=== PATIENT | male | born 1980 | race African-American/Black ===

== ENCOUNTER 2016-11-22 05:02 | Emergency (ER) | payer SELFPAY ==
[~2016-11-22] VITALS: Ht 175.3 cm; Wt 69.0 kg
[~2016-11-22 05:02] MED LIST: ADVI200C9
[2016-11-22 05:06] VITALS: BP 155/95; PULSE 118; RESP 15; TEMP 97.4; O2SAT 100
--- NOTE | 2016-11-22 05:42 | PD ---
HPI Chief Complaint: Oral / Dental Pain or Problem Travel History International Travel<30 days: No Contact w/Intl Traveler<30days: No Traveled to known affect area: No PFSH Past Medical History Cardiovascular Problems: Yes (CARDIAC DYSRHYTHMIA SINCE CHILDHOOD.) Social History Alcohol Use: Yes (OCCASIONAL SIP OF BEER, HAD A "FEW SIPS" TONIGHT.) Tobacco Use: Yes (2 PPD, SMOKED "A LOT" TONIGHT.) Allergies-Medications (Allergen,Severity, Reaction): Coded Allergies: Penicillin (Verified Allergy, Mild, UNKNOWN, REACTION A CHILD, 11/22/16) Reported Meds & Prescriptions Reported Meds & Active Scripts Active Reported Advil (Ibuprofen) 200 Mg Cap Review of Systems Except as stated in HPI: all other systems reviewed are Neg Data Data Last Documented VS Vital Signs Date Time Temp Pulse Resp B/P Pulse Ox O2 Delivery O2 Flow Rate FiO2 11/22/16 05:58 89 14 123/71 98 Room Air 11/22/16 05:06 97.4 Luis Lawler Nov 22, 2016 05:42 11/22/16 05:58 89 14 123/71 98 Room Air 11/22/16 05:06 97.4 Luis Lawler Nov 22, 2016 05:42
[2016-11-22 05:58] VITALS: BP 123/71; PULSE 89; RESP 14; O2SAT 98
--- NOTE | 2016-11-22 06:11 | PD ---
HPI Chief Complaint: Oral / Dental Pain or Problem Time Seen by Provider: 05:33 Travel History International Travel<30 days: No Contact w/Intl Traveler<30days: No Traveled to known affect area: No History of Present Illness HPI Patient is in for evaluation of dental abscess ongoing for several days. Patient states he was seen at different ER yesterday prescribed antibiotics and he is still having pain in the right side of his face radiates to his right ear. Pain is worse with eating. Patient denies any fevers, nausea, vomiting, diarrhea. Patient states that he was prescribed clindamycin but has not picked up the prescription yet and was not prescribed any pain medication. Patient is just wanting something for pain. History Social History Alcohol Use: Yes (OCCASIONAL SIP OF BEER, HAD A "FEW SIPS" TONIGHT.) Tobacco Use: Yes (2 PPD, SMOKED "A LOT" TONIGHT.) Allergies-Medications (Allergen,Severity, Reaction): Coded Allergies: Penicillin (Verified Allergy, Mild, UNKNOWN, REACTION A CHILD, 11/22/16) Reported Meds & Prescriptions Reported Meds & Active Scripts Active Reported Advil (Ibuprofen) 200 Mg Cap Review of Systems Except as stated in HPI: all other systems reviewed are Neg Physical Exam Narrative GENERAL: Well-developed, well nourished, in no acute distress, and non-ill appearing. SKIN: Warm and dry. HEAD: Atraumatic. Normocephalic. EYES: Pupils equal and round. EOMI. No scleral icterus. No injection or drainage. ENT: No nasal bleeding or discharge. Mucous membranes pink and moist. Poor dentition with a small abscess noted over the hard palate. It is tender to palpation. There is no purulent drainage. Floor of the mouth, submandibular, submental are all soft palpation. Tympanic membranes are pearly ty bilaterally. NECK: Trachea midline. No cervical lymphadenopathy. Supple. No nuclear rigidity. RESPIRATORY: No accessory muscle use. No respiratory distress. MUSCULOSKELETAL: No obvious deformities. No clubbing. No cyanosis. No edema. Full range of motion. NEUROLOGICAL: Awake and alert. No obvious cranial nerve deficits. Motor grossly within normal limits. Normal speech. PSYCHIATRIC: Appropriate mood and affect; insight and judgment normal. Data Data Last Documented VS Vital Signs Date Time Temp Pulse Resp B/P Pulse Ox O2 Delivery O2 Flow Rate FiO2 11/22/16 05:58 89 14 123/71 98 Room Air 11/22/16 05:06 97.4 MDM Medical Screen Exam Complete: Yes Emergency Medical Condition: No Narrative Course History and physical exam findings are not consistent with an emergent medical condition. He was given the option of receiving additional care, but has declined. Therefore the appropriate counseling recommendations were discussed with the patient and he was instructed to follow-up with his primary care physician as soon as possible for reevaluation. Patient was also informed of community resources from which he can obtain additional care. He is agreeable and verbalizes an understanding of the proposed plan. The patient states he will immediately return to the emergency department if his current complaints do not improve, new symptoms arise, or emergent condition develops. Patient ambulated out of the emergency department without difficulty. Primary Impression: Encounter for medical screening examination Disposition: [facility]-ED USE ONLY Condition: Stable Luis Lawler Nov 22, 2016 06:11
== END 2016-11-22 06:10 | disposition left against medical advice (07) ==
LOC: NEPB 05:02
DX: K08.89 Other specified disorders of teeth and supporting structures (principal); F17.210 Nicotine dependence, cigarettes, uncomplicated
CPT/HCPCS: 99281; 99282